=== PATIENT | male | born 2000 | race Caucasian/White ===

== ENCOUNTER 2024-08-27 14:02 | Emergency (ER) | payer MEDICAID ==
[~2024-08-27] VITALS: Ht 172.7 cm; Wt 100.0 kg
[2024-08-27 14:08] VITALS: O2SAT 99
[2024-08-27] MEDS ORDERED: LIDOCAINE HCL/PF 1% 10 MG/ML 5ML VIAL INFIL ONE (16:15)
[2024-08-27] MEDS: TETANUS, DIPHTHERIA, PERTUSSIS VAC/PF 0.5ML (>10YR OLD) IM ONE (16:34)
[2024-08-27] MEDS: BACITRACIN ZINC OINT UDPKT TOP ONE (16:43)
[2024-08-27] MEDS ORDERED: IBUP-2029 MT (17:35)
[2024-08-27] MEDS ORDERED: NEOM28.43 TP (17:35)
[2024-08-27 17:54] VITALS: BP 127/84; PULSE 63; RESP 18; TEMP 36.7; O2SAT 98
== END 2024-08-27 17:55 | disposition home or self-care (01) ==
LOC: ER 14:24
DX: S01.01XA Laceration without foreign body of scalp, initial encounter (principal); S61.011A Laceration without foreign body of right thumb without damage to nail, initial encounter; S09.90XA Unspecified injury of head, initial encounter; Y08.89XA Assault by other specified means, initial encounter; Y93.89 Activity, other specified; Y92.89 Other specified places as the place of occurrence of the external cause; Y99.8 Other external cause status
CPT/HCPCS: 73130; 70450; 70486; 90715; 90471; 99285; J2003; Z7610